=== PATIENT | female | born 1980 | race American Indian/Alaskan Native ===

== ENCOUNTER 2017-09-25 05:40 | Emergency (ER) | payer MEDICAID ==
[2017-09-25 07:32] VITALS: BP 168/95
--- NOTE | 2017-09-25 08:58 | Emergency Department Report ---
Minor Respiratory - HPI Chief Complaint: Upper Respiratory Infection Stated Complaint: COUGH Time Seen by Provider: 09/25/17 08:52 Duration: 3 weeks Pain Location: Nose (congestion) Severity: mild Minor Respiratory: Yes Rhinorrhea, Yes Able to Tolerate Fluids, Yes Cough, Yes Chest Pain (chest discomfort with cough), No Sore Throat, No Ear Pain, No Sick Contacts, No Hemoptysis, No Shortness of Breath, No Fever Other History: This is a 36-year-old -[place] female who presents with a productive cough and congestion for 3 weeks. Patient reports cough is productive with greenish mucus which causes some discomfort to chest. Patient reports she has been taken Mucinex for the past 3 weeks with no improvement of symptoms. She states she is very uncomfortable and night because cough is increased. She has a history of hypertension. Patient reports feeling okay besides the cough and congestion. Denies fever, nausea or vomiting, shortness of breath, wheezing, sinus pressure, and ear pain. ED Review of Systems ROS: Stated complaint: COUGH Other details as noted in HPI Constitutional: denies: chills, fever ENT: congestion. denies: ear pain, throat pain, dental pain, hearing loss, epistaxis Respiratory: cough. denies: shortness of breath, wheezing Cardiovascular: chest pain (discomfort with cough). denies: palpitations, edema , syncope Gastrointestinal: denies: abdominal pain, nausea, vomiting, diarrhea Neurological: denies: headache, weakness, numbness, paresthesias Psychiatric: denies: anxiety, depression ED Past Medical Hx - Past Medical History Hx Hypertension: Yes - Surgical History Past Surgical History?: No - Social History Smoking Status: Never Smoker Substance Use Type: None - Medications Home Medications: Home Medications Medication Instructions Recorded Confirmed Last Taken Type Azithromycin [Zithromax Z-OBED] 250 mg PO DAILY #6 tablet 09/25/17 Unknown Rx Benzonatate 200 mg PO TID PRN #30 capsule 09/25/17 Unknown Rx Fluticasone [Flonase] 1 spray NS QDAY #1 bottle 09/25/17 Unknown Rx Minor Respiratory Exam - Exam General: Vital signs noted. No distress. Alert and acting appropriately. HEENT: Yes Pharyngeal Erythema, Yes Moist Mucous Membranes, Yes Rhinorrhea ( turbinates are mildly congested with mucoid discharge), No Pharyngeal Exudates, No Conjuctival Injection, No Frontal Tenderness, No Maxillary Tenderness Ear: Neither TM Bulge, Neither TM Erythema, Neither EAC Pain, Neither EAC Discharge Neck: Yes Supple, No Adenopathy Lungs: Yes Good Air Exchange, Yes Cough, No Wheezes, No Ronchi, No Stridor, No Labored Respirations, No Retractions, No Use of Accessory Muscles, No Other Abnormal Lung Sounds Heart: Yes Regular, No Murmur Abdomen: Yes Normal Bowel Sounds, No Tenderness, No Peritoneal Signs Skin: No Rash, No Edema Neurologic: Alert and oriented, no deficits. Musculoskeletal: Unremarkable. ED Course Vital Signs 09/25/17 07:28 Temperature 99.5 F Pulse Rate 71 Respiratory 16 Rate Blood Pressure 168/95 O2 Sat by Pulse 100 Oximetry ED Medical Decision Making - Medical Decision Making 36-year-old female presents with productive cough and congestion for 3 weeks. Patient examined by me and stable. No distress noted. Vitals normal other than low-grade fever. No labs or radiograph obtained. Physical findings susceptible of bronchitis. Start Z-pack, benzonatate, and Flonase. Patient is satting 100% on room air, will not start inhaler this time. Discharged home stable. Follow up with Primary Care Provider in 2-3 days. Critical care attestation.: If time is entered above; I have spent that time in minutes in the direct care of this critically ill patient, excluding procedure time. ED Disposition Clinical Impression: Bronchitis, Productive cough Disposition: TO HOME OR SELFCARE Is pt being admited?: No Does the pt Need Aspirin: No Condition: Stable Instructions: Acute Bronchitis (ED) Additional Instructions: Increase fluid intake and rest. Wash hands frequently. Complete full course of antibiotics. Continue taking tylenol or ibuprofen every 6 hours as needed to control fever. F/U with Primary Care Provider in 2-3 days. Return to ER if fever, SOB, or difficulty breathing after 48 hours of supportive care. Prescriptions: Azithromycin [Zithromax Z-OBED] 250 mg PO DAILY #6 tablet Benzonatate 200 mg PO TID PRN #30 capsule PRN Reason: Cough Fluticasone [Flonase] 1 spray NS QDAY #1 bottle Referrals: [facility] [Outside] - 3-5 Days [facility] [Outside] - 3-5 Days [facility] [Outside] - 3-5 Days Time of Disposition: 09:01 Print Language: INDONESIAN
== END 2017-09-25 09:10 | disposition home or self-care (01) ==
LOC: ED 05:40
DX: J40 Bronchitis, not specified as acute or chronic (principal); R05 Cough; I10 Essential (primary) hypertension
CPT/HCPCS: 99282

== ENCOUNTER 2018-06-10 11:06 | Emergency (ER) | payer MEDICAID ==
[2018-06-10 11:28] LABS: Bilirubin,Urine NEG (Negative); Blood,Urine SM (Negative); Color,Urine Straw (Yellow); Mucus,Urine FEW /HPF; Protein,Urine <15 mg/dL mg/dL (Negative); Urobilinogen,Urine < 2.0 mg/dL (<2.0)
[2018-06-10 11:48] LABS: Basophils # (Auto) 0.1 K/mm3 (0.0-0.1); Basophils % (Auto) 0.8 % (0.0-1.8); Eosinophils # (Auto) 0.1 K/mm3 (0.0-0.4); Eosinophils % (Auto) 1.8 % (0.0-4.3); Hematocrit 38.9 % (30.3-42.9); Hemoglobin 13.7 gm/dl (10.1-14.3); Lymphocytes # (Auto) 2.1 K/mm3 (1.2-5.4); Lymphocytes % (Auto) 28.9 % (13.4-35.0); Mean Corpuscular HGB Conc 35 % (30-34); Mean Corpuscular Volume 94 fl (79-97); Monocytes # (Auto) 0.3 K/mm3 (0.0-0.8); Monocytes % (Auto) 4.3 % (0.0-7.3); Platelet Count 327 K/mm3 (140-440); Red Blood Count 4.15 M/mm3 (3.65-5.03); Red Cell Distribution Width 13.4 % (13.2-15.2)
[2018-06-10 12:07] LABS: Alanine Aminotransferase 16 units/L (7-56); Albumin 4.4 g/dL (3.9-5); BUN/Creatinine Ratio 12; Blood Urea Nitrogen 7 mg/dL (7-17); Calcium 9.4 mg/dL (8.4-10.2); Hemolysis Index 10
[2018-06-10] MEDS ORDERED: ZOFRAN IV ONE ×2 (12:21→13:56)
[2018-06-10] MEDS ORDERED: NACL 0.9% 1000 ML 1,000 ML IV ONE ×2 (12:21→13:56)
--- NOTE | 2018-06-10 12:25 | Emergency Department Report ---
HPI - General Chief Complaint: Dizziness Time Seen by Provider: 06/10/18 12:12 - HPI HPI: 37-year-old female presents to the emergency department with complaint of a two-day history of nausea and vomiting and some previous nonspecific dizziness. The patient was seen at the [facility] last night for same symptoms and had some normal blood work and was told to go home and increase oral rehydration. The patient tried to eat and drink this morning but had continued nausea and vomiting. She says that the dizziness has resolved but she just has some generalized fatigue. She denies any past medical history. No recent travel or sick contacts at home. She has a primary care physician through the [facility]. ED Past Medical Hx - Past Medical History Hx Hypertension: Yes - Surgical History Additional Surgical History: D&C, shoulder - Social History Smoking Status: Current Every Day Smoker Substance Use Type: None - Medications Home Medications: Home Medications Medication Instructions Recorded Confirmed Last Taken Type Fluticasone [Flonase] 1 spray NS QDAY #1 bottle 09/25/17 Unknown Rx RX: Azithromycin [Zithromax Z-OBED] 250 mg PO DAILY #6 tablet 09/25/17 Unknown Rx RX: Benzonatate 200 mg PO TID PRN #30 capsule 09/25/17 Unknown Rx Ondansetron [Zofran Odt] 4 mg PO Q8HR PRN #12 tab.rapdis 06/10/18 Unknown Rx ED Review of Systems ROS: Stated complaint: DEHYDRATED Other details as noted in HPI Comment: All other systems reviewed and negative Constitutional: weakness. denies: chills, fever Eyes: denies: eye pain, vision change ENT: denies: ear pain, throat pain Respiratory: denies: cough, shortness of breath Cardiovascular: denies: chest pain, palpitations Gastrointestinal: nausea, vomiting Genitourinary: denies: dysuria, discharge Musculoskeletal: denies: back pain, arthralgia Skin: denies: rash, lesions Neurological: denies: headache, weakness Physical Exam - Physical Exam Vital Signs: Vital Signs 06/10/18 11:08 Temperature 97.9 F Pulse Rate 100 H Respiratory 18 Rate Blood Pressure 142/103 O2 Sat by Pulse 100 Oximetry Physical Exam: GENERAL: The patient is well-developed well-nourished. HEENT: Normocephalic. Atraumatic. Patient has moist mucous membranes. EYES: Extraocular motions are intact. NECK: Supple. Trachea is midline. CHEST/LUNGS: Clear to auscultation. There is no respiratory distress noted. HEART/CARDIOVASCULAR: Regular. There is no tachycardia. There is no obvious murmur. ABDOMEN: Abdomen is soft, nontender. Patient has normal bowel sounds. There is no abdominal distention. SKIN: Skin is warm and dry. NEURO: The patient is awake, alert, and oriented. The patient is cooperative. The patient has no focal neurologic deficits. The patient has normal speech. Cranial nerves II through XII grossly intact. MUSCULOSKELETAL: There is no tenderness or deformity. There is no limitation range of motion. There is no evidence of acute injury. ED Course Vital Signs 06/10/18 11:08 Temperature 97.9 F Pulse Rate 100 H Respiratory 18 Rate Blood Pressure 142/103 O2 Sat by Pulse 100 Oximetry ED Medical Decision Making - Lab Data Result diagrams: 06/10/18 11:33 06/10/18 11:33 - Medical Decision Making This patient presents to the emergency department with a few days of some nausea, vomiting and some previous dizziness and/or lightheadedness. Her labs have been unremarkable including a CBC, CMP, lipase, urinalysis and test. An IV was placed and she was given IV fluid resuscitation. At first she did not want the Zofran for her nausea but did ask for it after the first bag of fluid. She received Zofran and some more IV fluid resuscitation and then says she is feeling much better. She passed an oral challenge. Vital signs stable throughout her ED course. She will be discharged home with some Zofran ODT and instructions to increase her oral rehydration. She will return to the ER with any worsening of her symptoms or any acute distress. - Differential Diagnosis food poisoning, viral syndrome, colitis, dehydration Critical Care Time: No Critical care attestation.: If time is entered above; I have spent that time in minutes in the direct care of this critically ill patient, excluding procedure time. ED Disposition Clinical Impression: Dehydration, Lightheaded Nausea & vomiting Qualifiers: Vomiting type: unspecified Vomiting Intractability: non-intractable Qualified Code(s): R11.2 - Nausea with vomiting, unspecified Disposition: DC-01 TO HOME OR SELFCARE Is pt being admited?: No Condition: Stable Instructions: Dehydration (ED), Acute Nausea and Vomiting (ED) Additional Instructions: Please follow-up with your primary care physician. Return to the emergency Department with any worsening of your symptoms or any acute distress. Increase your oral rehydration. Prescriptions: Ondansetron [Zofran Odt] 4 mg PO Q8HR PRN #12 tab.rapdis PRN Reason: Nausea Referrals: [facility] [Other] - 3-5 Days Time of Disposition: 14:56
[2018-06-10 15:25] VITALS: BP 167/90
== END 2018-06-10 15:25 | disposition home or self-care (01) ==
LOC: ED 11:06
DX: E86.0 Dehydration (principal); R42 Dizziness and giddiness; R11.2 Nausea with vomiting, unspecified; I10 Essential (primary) hypertension; F17.200 Nicotine dependence, unspecified, uncomplicated
CPT/HCPCS: 36415; 80053; 81001; 84703; 85025; 96361; 96374; 99283; J2405; J7030